=== PATIENT | female | born 1970 | race Caucasian/White ===

== ENCOUNTER 2018-08-18 00:08 | Outpatient (CLI) | payer OTHER, SELFPAY ==
--- NOTE | 2018-08-18 13:48 | DI.CT_ITS ---
SYMPTOMS/DIAGNOSIS: ABNORMAL CHEST CT, R93.[address]: Comparison is made with December,, as well as April,. There has been no change in the right middle lobe nodule. No new nodules are identified. There is no evidence of infiltrates or effusions. No adenopathy is seen. A large bulla is again noted at the right lung base. The heart size is normal. The visualized portions of the upper abdomen are unremarkable without IV contrast. IMPRESSION: Right middle lobe nodule has been stable when compared with the oldest exam available from 2015. It lies right in the fissure.
== END 2018-08-18 00:28 ==
PROVIDERS: PCP Nurse Practitioner; Visit Provider Internal Medicine
DX: R91.1 Solitary pulmonary nodule (principal)
CPT/HCPCS: 71250

== ENCOUNTER 2018-10-06 15:15 | Emergency (ER) | payer OTHER, SELFPAY ==
[2018-10-06 15:28] VITALS: BP 167/100; PULSE 93; RESP 20; TEMP 36.9; O2SAT 100
[2018-10-06] MEDS: Acetaminophen 500 MG TAB 1000 MG PO (16:05)
[2018-10-06] MEDS: Ibuprofen 600 MG TAB PO (16:05)
[2018-10-06] MEDS: predniSONE 20 MG TAB 60 MG PO (16:05)
--- NOTE | 2018-10-06 16:07 | ED.GENADUL_ITS ---
Discharge Plan Disposition Patient Disposition: HOME Condition: Stable Discharge Details Chief Complaint: Allergic Clinical Impression: Otitis media, Tension headache, Migraine Reason For Visit: throat closing Primary Care Provider: Velia Su ED Provider: Ana Paula Penn Home Meds and New Rx's Prescriptions: New prednisone 20 mg tablet 20 mg PO DIRECTED Qty: 12 RF: 0 azithromycin [Zithromax Z-Robbie] 250 mg tablet See Label Instructions .ROUTE .COMPLEX Qty: 6 RF: 0 Continue calcium carbonate [Calcium 600] 600 MG tablet 600 mg PO DAILY RF: 0 montelukast 10 MG tablet 10 mg PO DAILY RF: 0 loratadine 10 MG tablet 10 mg PO DAILY RF: 0 fluticasone [Flovent HFA] 1 PUFF HFA aerosol inhaler Inhalation BID RF: 0 levalbuterol tartrate [Xopenex HFA] 1 PUFF HFA aerosol inhaler 2 puff Inhalation PRN PRNRF: 0 dexlansoprazole [Dexilant] 30 MG capsule,biphase delayed releas 30 mg PO DAILY RF: 0 bupropion HCl [Wellbutrin SR] 150 mg Tablet Sustained-Release 12 Hr 150 mg PO BID RF: 0 sertraline 25 mg Tablet 25 mg PO DAILY RF: 0 Discharge Instructions Instructions: Otitis Media (ED) Additional Instructions: Drink plenty of fluids and get plenty of rest. Stop taking the clindamycin. Start taking the zithromax as directed. Take the steroids until finished. Take Tylenol and Motrin as needed and directed for pain. Follow-up with your primary care doctor in 1 week for reevaluation. Return immediately to the emergency department any worsening or new concerning symptoms. Stand Alone Forms: Work Release Discharge Data Discharge Physician: Ana Paula Penn Medical Decision Making 48yo F who presents with b/l ear pain x 1 week with radiation to L side of neck x 2 days. Pt on clindamycin for ruptured R TM per pcp. 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 Pt appears somewhat anxious. BP hypertensive, HR upper limit of normal. Afebrile. No meningeal signs. No focal deficits. R TM obscured by cerumen but appears somewhat erythematous. L TM dull. Normal oropharynx. No lymphadenopathy/ submandibular swelling. Lungs cta. Pain in L neck worse with movement of head so suspect muscular. Likely pain referred from ears. Denies sensation of throat swelling but throat felt dry. Will give a dose of prednisone, motrin and tylenol PO and reassess. 163 -- Pt not feeling any better in her head. C/o frontal headache and tingling. States she would like a CT scan of her head. Pt admits to a h/o migraines so may be from and/or muscle strain/viral illness. Will place an IV, bolus ivf, compazine and ct head. Pt is refusing benadryl IV - states she has an opposite reaction to it. 183 -- labs and imaging reviewed and unremarkable. Patient has a history of chronic leukocytosis which she told me about before lab draw. White blood cell count and remainder of chronic elevation of the labs stable compared to previous. Patient states she feels much better and is requesting to go home. Pt instructed to stop the clindamycin and will give a prescription for zithromax. Script for predisone given. Patient instructed to follow-up with a primary care doctor for evaluation, drink plenty of fluids and plenty of rest, and return here immediately if worse. Medical Records Medical records reviewed: Yes I reviewed the patient's medical records. Imaging Data Radiologic Study: Radiologist's impression: CT Head Without Contrast EXAM DATE/TIME: 10/06/2018 4:40 PM FINDINGS: Brain: No acute intracranial hemorrhage or extra-axial fluid collection. No evidence of mass effect or midline shift. Jean Baptiste-white matter differentiation is intact. Ventricles: No ventriculomegaly. Bones/joints: No acute osseus lesion or fracture. Sinuses: Unremarkable as visualized. Mastoid air cells: Unremarkable. Soft tissues: Unremarkable. IMPRESSION: No acute intracranial abnormality. Lab Data Lab results reviewed: Yes I reviewed the patient's lab results. Laboratory Tests Range/Units 10/06/18 10/06/18 17:00 17:00 WBC (4.4-10.8) k/cumm 14.22 H RBC (4.00-5.20) m/cumm 6.38 H Hgb (12.0-15.5) g/dL 12.7 Hct (36.0-46.0) % 38.4 MCV (80-95) fL 60.2 L MCH (27.0-33.0) pg 19.9 L MCHC (32.0-36.0) g/dL 33.1 RDW (11.7-14.6) % 17.8 H Plt Count (130-400) x1000/uL 327 MPV (8.0-11.0) fL 10.7 Immature Gran % 0.4 Neutrophils % 73.7 Lymphocytes % 18.4 Monocytes % 6.5 Eosinophils % 0.6 Basophils % 0.4 Absolute Neutrophils (1.2-6.7) k/cumm 10.48 H Absolute Lymphocytes (1.2-3.4) k/cumm 2.62 Absolute Monocytes (0.11-0.7) k/cumm 0.92 H Absolute Eosinophils (0.0-0.7) k/cumm 0.09 Absolute Basophils (0.0-0.2) k/cumm 0.06 Differential Comment Rbc morph reviewed RBC Morphology See below Hypochromasia 2+ Microcytosis 3+ Sodium (136-145) mmol/L 140 Potassium (3.5-5.1) mmol/L 3.6 Chloride (98-107) mmol/L 100 Carbon Dioxide (21.0-32.0) mmol/L 28.4 Anion Gap (3-11) mmol/L 11.6 H BUN (7-18) mg/dL 10 Creatinine (0.55-1.02) mg/dL 0.79 Estimated GFR/1.73 m2 (mL/min/1.73m2) >= 60.00 Glucose (70-100) mg/dL 101 H Calcium (8.5-10.1) mg/dL 9.0 HPI General Mode of arrival: ambulatory . Date/Time Provider Initiated Documentation: 10/06/18 15:21 . Limitations to Documentation: no limitations . Information obtained by: patient . HPI Narrative: Pt is a 48yo F who presents with ear pain and sore throat and sensation of throat swelling. Pt states symptoms started with R ear pain 1 week ago. She saw her pcp and was diagnosed with R TM rupture and started on clindamycin. Pt states then her L ear pain started and today she felt worsening L ear pain with now radiation in the L side of her neck over the past 2 days. Pt states then pain radiates down into her L clavicle. 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 Denies any sensation of throat swelling. Pt denies cough, shortness of breath or abdominal pain. Related Data Home Medications Medication Instructions Recorded Confirmed calcium carbonate [Calcium 600] 600 mg PO DAILY 06/20/13 04/06/18 dexlansoprazole [Dexilant] 30 mg PO DAILY 06/20/13 10/06/18 fluticasone [Flovent HFA] 0 gm INHALATION BID 06/20/13 10/06/18 levalbuterol tartrate [Xopenex HFA] 2 puff INHALATION PRN PRN 06/20/13 04/06/18 loratadine 10 mg PO DAILY 06/20/13 10/06/18 montelukast 10 mg PO DAILY 06/20/13 10/06/18 azithromycin [Zithromax Z-Robbie] See Label Instructions .ROUTE 10/06/18 .COMPLEX #6 tab bupropion HCl [Wellbutrin SR] 150 mg PO BID 10/06/18 10/06/18 prednisone 20 mg PO DIRECTED #12 tab 10/06/18 sertraline 25 mg PO DAILY 10/06/18 10/06/18 Previous Rx's Medication Instructions Recorded azithromycin [Zithromax Z-Robbie] See Label Instructions .ROUTE 10/06/18 .COMPLEX #6 tab prednisone 20 mg PO DIRECTED #12 tab 10/06/18 Allergies Allergy/AdvReac Type Severity Reaction Status Date / Time codeine Allergy Intermediate shakes-passes Unverified 10/06/18 15:32 out doxycycline Allergy Intermediate Swelling/Ed Verified 10/06/18 15:32 wali Penicillins Allergy Intermediate ? rash as Unverified 10/06/18 15:32 child amitriptyline HCl Allergy Mild Skin Rash Unverified 10/06/18 15:32 [From Elavil] hydrocodone [Hydrocodone] Allergy Mild vomiting Unverified 10/06/18 15:32 diarrhea General Stated Complaint: Allergic SATYA: 2 Review of Systems Review of Systems All systems reviewed & are unremarkable except as noted in HPI and below Constitutional Reports as per HPI, Denies chills and Denies fever(s) Eyes Denies blurry vision ENT Denies dizziness, Reports dry mouth, Reports otalgia, Reports neck pain, Reports sore throat and Denies throat swelling Cardiovascular Denies chest pain and Denies dyspnea Respiratory Denies dyspnea Gastrointestinal Denies abdominal pain, Denies diarrhea and Denies vomiting Genitourinary Denies hematuria and Denies dysuria Musculoskeletal Denies back pain, Reports neck pain and Denies numbness Integumentary/Breasts Denies lesions and Denies rash Neurologic Denies dizziness and Denies numbness Allergic/Immunologic Denies throat swelling PFSH Celiac disease (Acute) Thalassemia (Acute) History of hysterectomy (Chronic) H/O thumb surgery (Acute) H/O section (Chronic) H/O laparoscopy (Chronic) History of appendectomy (Chronic) Medical History Celiac disease (Acute) Thalassemia (Acute) History of hysterectomy (Chronic) Social History Smoking/Tobacco Use Status: Former Tobacco Use Surgical History H/O thumb surgery (Acute) H/O section (Chronic) H/O laparoscopy (Chronic) History of appendectomy (Chronic) Social History Smoking/Tobacco Use Status: Former Tobacco Use quit date: 07/23/18 alcohol intake: never substance use type: does not use Exam Const General: cooperative, healthy appearing and no acute distress HENMT Head: normal to inspection Ears: other (R TM notes cerumen and view of full TM obscured but does notes some erythema/dullness but no drainage; L TM dull, possible effusion, no erythema/drainage) General nose exam: external nose normal Face and sinus: normal facial exam Mouth: oral mucosae normal Teeth and gingiva: dentition normal Throat: posterior oropharynx normal, uvula midline, no peritonsillar masses and no postnasal drainage Eyes General: appearance normal, both eyes and all related structures Neck Neck: normal visual inspection, no meningeal signs, trachea midline, supple, no anterior neck swelling, nontender and No submandibular swelling Lymphatic: no lymphadenopathy noted Resp Effort & Inspection: normal respiratory effort and able to speak in complete sentences Auscultation: clear to auscultation bilaterally Cardio Rate: regular rate Rhythm: regular rhythm Skin General skin exam: no rashes or lesions noted Neuro General: alert, awake and oriented x3 Motor: muscle tone normal throughout Extrem General: normal to inspection and full ROM Psych Appearance: grossly normal Affect: normal affect Course Vital Signs Temperature 98.4 F 10/06/18 15:28 Pulse 93 H 10/06/18 15:28 Respiratory Rate 20 10/06/18 15:28 Blood Pressure 167/100 H 10/06/18 15:28 Pulse Oximetry 100 10/06/18 15:28 Temperature 98.4 F 10/06/18 15:28 Temperature Source Tympanic 10/06/18 15:28 Pulse 93 H 10/06/18 15:28 Respiratory Rate 20 10/06/18 15:28 Respiratory Effort 10/06/18 15:37 Respiratory Pattern Normal 10/06/18 15:37 Blood Pressure 167/100 H 10/06/18 15:28 Pulse Oximetry 100 10/06/18 15:28 Oxygen Delivery Method Room Air 10/06/18 15:28 Oxygen Flow Rate 0 10/06/18 15:28
--- NOTE | 2018-10-06 16:39 | DI.CT_ITS ---
SYMPTOM/DIAGNOSIS: FRONTAL HEADACHE, R/O ACUTE CVA/MASS NONCONTRAST HEAD CT: Comparison is made with 29 March 2014. No intracranial hemorrhage, mass or infarct is seen. There is no evidence of atrophy No white matter changes are visible The visualized portions of the sinuses and mastoid air cells appear clear. No bony abnormalities are identified. IMPRESSION: Negative head CT.
[2018-10-06] MEDS: Prochlorperazine 10 MG/2 ML VIAL IVP (17:20)
[2018-10-06] MEDS: Normal Saline 1,000 ML 1000 ML IV (17:24)
[2018-10-06 17:41] LABS: Anion Gap 11.6 mmol/L (3-11); BUN 10 mg/dL (7-18); CO2 28.4 mmol/L (21.0-32.0); CREATININE 0.79 mg/dL (0.55-1.02); Chloride 100 mmol/L (98-107); Glucose 101 mg/dL (70-100); Potassium 3.6 mmol/L (3.5-5.1); Sodium 140 mmol/L (136-145)
--- NOTE | 2018-10-06 17:52 | DI.VRAD_ITS ---
EXAM: CT Head Without Contrast EXAM DATE/TIME: 10/06/2018 4:40 PM CLINICAL HISTORY: 48 years old, female; Pain; Headache; Other: Frontal; Patient HX: Frontal headache; Additional info: R/O acute cva/mass TECHNIQUE: Axial computed tomography images of the head/brain without contrast. Coronal and sagittal reformatted images were created and reviewed. COMPARISON: CT HEAD WITHOUT CONTRAST 04/08/2014 9:43 AM FINDINGS: Brain: No acute intracranial hemorrhage or extra-axial fluid collection. No evidence of mass effect or midline shift. Jean Baptiste-white matter differentiation is intact. Ventricles: No ventriculomegaly. Bones/joints: No acute osseus lesion or fracture. Sinuses: Unremarkable as visualized. Mastoid air cells: Unremarkable. Soft tissues: Unremarkable. IMPRESSION: No acute intracranial abnormality. Dictated and Authenticated by: Tom Wise MD. Ordering:DIVYA TAY MD
[2018-10-06 17:54] LABS: Abs Immature Grans 0.05 k/cumm (0.0-0.09); Absolute Basophil Count 0.06 k/cumm (0.0-0.2); Absolute Eosinophil Count 0.09 k/cumm (0.0-0.7); Absolute Neutrophil Count 10.48 k/cumm (1.2-6.7); Basophils % 0.4; Eosinophils % 0.6; HCT 38.4 % (36.0-46.0); HGB 12.7 g/dL (12.0-15.5); Immature Grans % 0.4; Lymphocytes % 18.4; Mean Corp. HGB Concentration 33.1 g/dL (32.0-36.0); Mean Corpuscular Hemoglobin 19.9 pg (27.0-33.0); Mean Corpuscular Volume 60.2 fL (80-95); Mean Platelet Volume 10.7 fL (8.0-11.0); Monocytes % 6.5; Neutrophils % 73.7; Platelet Count 327 x1000/uL (130-400); RBC 6.38 m/cumm (4.00-5.20); RBC Distribution Width 17.8 % (11.7-14.6); White Blood Cell Count 14.22 k/cumm (4.4-10.8)
[2018-10-06 18:02] LABS: Absolute Lymphocyte Count 2.62 k/cumm (1.2-3.4); Absolute Monocyte Count 0.92 k/cumm (0.11-0.7)
[2018-10-06 18:17] LABS: Diff Comment RBC Morph Reviewed; Hypochromasia 2+; Microcytosis 3+
[2018-10-06 19:03] VITALS: BP 103/56; PULSE 70; RESP 16; TEMP 36.4; O2SAT 97
[2018-10-06] MEDS: Prochlorperazine 10 MG TAB PO (19:06)
== END 2018-10-06 19:40 | disposition home or self-care (01) ==
PROVIDERS: Emergency Provider Physician Assistant; PCP Nurse Practitioner
DX: H66.92 Otitis media, unspecified, left ear (principal); M54.2 Cervicalgia; G44.209 Tension-type headache, unspecified, not intractable; G43.909 Migraine, unspecified, not intractable, without status migrainosus
CPT/HCPCS: 36415; 80048; 96361; 96374; 99284; 70450; 85025; 99285; J0780; J7512

== ENCOUNTER 2018-12-05 12:15 | Outpatient (CLI) | payer OTHER, SELFPAY ==
--- NOTE | 2018-12-05 12:13 | DI.RAD_ITS ---
SYMPTOMS/DIAGNOSIS: INFLUENZA, J11.1 PA AND LATERAL CHEST: The heart is normal in size. The lungs are clear. The mediastinal structures and pleura appear intact. CONCLUSION: Normal chest.
== END 2018-12-05 12:35 ==
PROVIDERS: PCP Nurse Practitioner; Visit Provider Family Medicine
DX: J11.1 Influenza due to unidentified influenza virus with other respiratory manifestations (principal)
CPT/HCPCS: 71046

== ENCOUNTER 2019-01-15 02:42 | Outpatient (CLI) | payer OTHER, SELFPAY ==
--- NOTE | 2019-01-15 | PFT_ITS ---
PULMONARY FUNCTION TEST REPORT Patient - Opal Woods 70 DATE OF SERVICE 01/15/19 REQUESTING PROVIDER Eddie Chowdhury M.D. INTERPRETATION OF STUDY Spirometry shows borderline mild obstructive airways disease, may represent normal variant. There is no bronchodilator response. LUNG VOLUMES - Lung volumes show no evidence of restriction. DIFFUSION CAPACITY- Borderline mildly reduced, again, may represent normal variant. AIRWAY RESISTANCE - Normal. IMPRESSION Overall this might represent a normal pulmonary function study. There is possibly borderline mild obstruction, thought this may be representing normal variant. When this study was compared to previous one from 02/24/08, the patient has a total of 310 cc decline in FVC, and 220 cc decline in FEV1. Clinical correlation recommended. Pamela Harrington M.D. THERESE/ DD 01/21/19 DT 01/21/19
[2019-01-15] MEDS: Inhaler, Assist Device 1 EACH MC (14:22)
[2019-01-15] MEDS: Albuterol HFA 18 GM 200 PUFF INH IH (14:23)
== END 2019-01-15 03:02 ==
PROVIDERS: PCP Nurse Practitioner; Visit Provider Family Medicine
DX: J44.9 Chronic obstructive pulmonary disease, unspecified (principal); F17.210 Nicotine dependence, cigarettes, uncomplicated
CPT/HCPCS: 94060; 94150; 94726; 94729

== ENCOUNTER 2019-12-24 15:46 | Emergency (ER) | payer OTHER, SELFPAY ==
[2019-12-24 15:51] VITALS: BP 136/88; PULSE 75; RESP 16; TEMP 36.3; O2SAT 100
--- NOTE | 2019-12-24 16:00 | DI.RAD_ITS ---
EXAM: XR WRIST RT COMPLETE INDICATION: pain R volar wrist, r/o acute fx. COMPARISON: No exams were available for comparison TECHNIQUE: 2D digital imaging was performed. FINDINGS: No fracture or dislocation is seen. No significant degenerative changes. IMPRESSION: Negative right wrist. DATA REPOSITORY: RADIATION DOSE DELIVERED:
--- NOTE | 2019-12-24 16:02 | ED.GENADUL_ITS ---
Discharge Plan Disposition Patient Disposition: HOME Condition: Stable Discharge Details Chief Complaint: Orthopedic Clinical Impression: Contusion of right wrist Primary Care Provider: Velia Su ED Provider: Ana Paula Penn Home Meds and New Rx's Prescriptions: Continued calcium carbonate [Calcium 600] 600 MG tablet 600 mg PO DAILY RF: 0 montelukast 10 MG tablet 10 mg PO DAILY RF: 0 loratadine 10 MG tablet 10 mg PO DAILY RF: 0 Flovent HFA 1 PUFF HFA aerosol inhaler 0 gm Inhalation BID RF: 0 levalbuterol tartrate [Xopenex HFA] 1 PUFF HFA aerosol inhaler 2 puff Inhalation PRN PRNRF: 0 Dexilant 30 MG capsule,biphase delayed releas 30 mg PO DAILY RF: 0 bupropion HCl [Wellbutrin SR] 150 mg Tablet Sustained-Release 12 Hr 150 mg PO BID RF: 0 sertraline 25 mg Tablet 25 mg PO DAILY RF: 0 prednisone 20 mg tablet 20 mg PO DIRECTED Qty: 12 RF: 0 Discharge Instructions Instructions: Contusion in Adults (ED) Additional Instructions: Rest, ice, and elevate the affected area as much as possible. Alternate tylenol and motrin as needed and directed for pain. Follow-up with your primary care doctor in 1 week as needed for re-evaluation or for repeat xray if pain persists or worsens. Return to the emergency department with any worsening or new concerning symptoms. Discharge Data Discharge Date/Time-TO BE ENTERED AT DEPARTURE: 12/24/19 17:08 Discharge Physician: Ana Paula Penn Medical Decision Making 49-year-old female presents with right wrist pain after fall onto outstretched right hand 3 times a day while ice skating. She has not taken anything for pain. There is a localized area of tenderness and ecchymosis noted to the right volar wrist. No obvious deformity. No snuffbox tenderness. Neurovascular intact. Declined pain medication here. X-ray negative for fracture. Patient placed in wrist splint. Advised to have repeat x-ray from PCP if symptoms persist or worsen. Usual and customary return precautions given prior to discharge. Imaging Data Radiologic Study: Radiologist's impression: XR CHEST 2V PA AND LATERAL INDICATION: COUGH, FEVER, R/O PNEUMONIA. COMPARISON: No exams were available for comparison TECHNIQUE: 2D digital imaging was performed. FINDINGS: The cardiac and mediastinal contours have a normal appearance. Lungs are suboptimally inflated. There are streaky densities seen at the right lower lobe. No effusions are seen. There is some gaseous distention of the colon. IMPRESSION: Right lower lobe pneumonia. HPI General Mode of arrival: ambulatory . Date/Time Provider Initiated Documentation: 12/24/19 15:57 . Limitations to Documentation: no limitations . Information obtained by: patient . History of Present Illness 49 year old F presents to the emergency department with the chief complaint of R wrist pain and swelling, Quality is described as aching and sharp, and is localized to the right and upper extremity (wrist). Patient started experiencing this hour(s) (1) and it has been constant. Rest improves symptom(s), Movement worsens symptoms . Patient notes no other symptoms.. Patient did receive the following treatments prior to arrival, none Related Data Home Medications Medication Instructions Recorded Confirmed Dexilant 30 mg PO DAILY 06/20/13 12/24/19 Flovent HFA 0 gm INHALATION BID 06/20/13 12/24/19 calcium carbonate [Calcium 600] 600 mg PO DAILY 06/20/13 12/24/19 levalbuterol tartrate [Xopenex HFA] 2 puff INHALATION PRN PRN 06/20/13 12/24/19 loratadine 10 mg PO DAILY 06/20/13 12/24/19 montelukast 10 mg PO DAILY 06/20/13 12/24/19 bupropion HCl [Wellbutrin SR] 150 mg PO BID 10/06/18 10/06/18 prednisone 20 mg PO DIRECTED #12 tab 10/06/18 12/24/19 sertraline 25 mg PO DAILY 10/06/18 12/24/19 Previous Rx's Medication Instructions Recorded prednisone 20 mg PO DIRECTED #12 tab 10/06/18 Allergies Allergy/AdvReac Type Severity Reaction Status Date / Time codeine Allergy Intermediate shakes-passes Unverified 12/24/19 15:53 out doxycycline Allergy Intermediate Swelling/Ed Verified 12/24/19 15:53 wali Penicillins Allergy Intermediate ? rash as Unverified 12/24/19 15:53 child amitriptyline HCl Allergy Mild Skin Rash Unverified 12/24/19 15:53 [From Elavil] hydrocodone [Hydrocodone] Allergy Mild vomiting Unverified 12/24/19 15:53 diarrhea General Stated Complaint: Orthopedic SATYA: 4 Review of Systems All systems reviewed & are unremarkable except as noted in HPI and below PFSH Social History Smoking/Tobacco Use Status: Former Tobacco Use Quit Date: 07/23/18 Alcohol Intake: never Drug use: Never Substance use type: does not use Do you feel safe in your relationship?: Yes Exam Const General: cooperative, healthy appearing and no acute distress HENMT Head: normal to inspection Mouth: oral mucosae normal Eyes General: appearance normal, both eyes and all related structures Neck Neck: normal visual inspection Resp Effort & Inspection: normal respiratory effort and able to speak in complete se ntences Cardio Rate: regular rate Skin General skin exam: no rashes or lesions noted Neuro General: alert, awake and oriented x3 Motor: muscle tone normal throughout Extrem Hand/finger images: 1. Localized area of tenderness and ecchymoses. No obvious deformity. No open wounds. No erythema or significant edema. Radial and ulnar pulses intact. Other: Pain in right wrist with flexion, extension, pronation and supination. Psych Appearance: grossly normal Affect: normal affect Course Vital Signs Vital signs: Vital Signs Temperature 97.3 F L 12/24/19 15:51 Pulse 75 12/24/19 15:51 Respiratory Rate 16 12/24/19 15:51 Blood Pressure 136/88 12/24/19 15:51 Pulse Oximetry 100 12/24/19 15:51 Temperature 97.3 F L 12/24/19 15:51 Temperature Source Skin 12/24/19 15:51 Pulse 75 12/24/19 15:51 Respiratory Rate 16 12/24/19 15:51 Respiratory Effort Non-Labored 12/24/19 15:51 Blood Pressure 136/88 12/24/19 15:51 Blood Pressure Position Supine 12/24/19 15:51 Pulse Oximetry 100 12/24/19 15:51 Oxygen Delivery Method Room Air 12/24/19 15:51 Oxygen Flow Rate 0 12/24/19 15:51 Pain Level 8 12/24/19 15:55
--- NOTE | 2019-12-24 16:43 | DI.VRAD_ITS ---
PROCEDURE INFORMATION: Exam: XR Right Wrist Exam date and time: 12/24/2019 4:16 PM Age: 49 years old Clinical indication: Injury or trauma; Fall; Initial encounter; Sprain or strain; Wrist; Right TECHNIQUE: Imaging protocol: XR Right wrist. Views: 3 or more views. COMPARISON: No relevant prior studies available. FINDINGS: Bones/joints: Normal. Soft tissues: Normal. IMPRESSION: No acute findings. Dictated and Authenticated by: Hubert Millard MD. Ordering:DIVYA Gsos MD
== END 2019-12-24 17:08 | disposition home or self-care (01) ==
PROVIDERS: Emergency Provider Physician Assistant; PCP Nurse Practitioner
DX: S60.211A Contusion of right wrist, initial encounter (principal); W00.0XXA Fall on same level due to ice and snow, initial encounter; Y93.21 Activity, ice skating
CPT/HCPCS: 29125; 99283; 73110; L3908

== ENCOUNTER 2020-01-25 08:30 | Outpatient (CLI) | payer OTHER, SELFPAY ==
[2020-01-26 18:57] LABS: SARS-CoV-2 RNA Undetected (Undetected); SARS-CoV-2 Specimen Source Nasopharynx
== END 2020-01-25 08:50 ==
PROVIDERS: PCP Nurse Practitioner; Visit Provider Family Medicine
DX: Z20.828 Contact with and (suspected) exposure to other viral communicable diseases (principal)
CPT/HCPCS: U0003

== ENCOUNTER 2020-08-02 16:54 | Outpatient (REF) | payer OTHER, SELFPAY ==
[2020-08-07 08:26] LABS: Patient Race White; SARS-CoV-2 RNA Undetected (Undetected); SARS-CoV-2 Specimen Source Nasopharynx
== END 2020-08-02 17:14 ==
LOC: NCHCN 16:54
PROVIDERS: PCP Nurse Practitioner; Visit Provider Nurse Practitioner Family
DX: R05 Cough (principal)
CPT/HCPCS: U0003

== ENCOUNTER 2020-09-16 18:21 | Outpatient (REF) | payer OTHER, SELFPAY ==
[2020-09-20 03:11] LABS: Patient Race White; SARS-CoV-2 RNA Undetected (Undetected); SARS-CoV-2 Specimen Source Nasal
== END 2020-09-16 18:41 ==
LOC: NCHCN 18:21
PROVIDERS: PCP Nurse Practitioner; Visit Provider Nurse Practitioner Family
DX: R50.9 Fever, unspecified (principal); J02.9 Acute pharyngitis, unspecified
CPT/HCPCS: U0003

== ENCOUNTER 2020-09-29 17:16 | Outpatient (REF) | payer OTHER, SELFPAY ==
[2020-09-29 18:23] LABS: Abs Immature Grans 0.04 10^3/uL (0.0-0.06); Absolute Basophil Count 0.09 10^3/uL (0.0-0.2); Absolute Eosinophil Count 0.22 10^3/uL (0.0-0.7); Absolute Monocyte Count 1.15 10^3/uL (0.1-0.8); Basophils % 0.7; Eosinophils % 1.6; HCT 37.8 % (36.0-46.0); HGB 11.9 g/dL (11.2-15.7); Immature Grans % 0.3; Lymphocytes % 35.1; MCH 19.4 pg (27.0-33.0); MCHC 31.5 % (32.0-36.0); MPV 10.5 fL (8.0-11.0); Monocytes % 8.5; Neutrophils % 53.8; Nucleated RBC 0 %; Platelet Count 367 10^3/uL (130-400); RDW 17.2 % (11.7-14.6); RDW-SD 33.1 fL; WBC 13.49 10^3/uL (4.4-10.8)
[2020-09-29 18:27] LABS: Anion Gap 7.8 mmol/L (3-11); BUN 11 mg/dL (7-18); CO2 28.2 mmol/L (21.0-32.0); CREATININE 0.96 mg/dL (0.55-1.02); Calcium 9.1 mg/dL (8.5-10.1); Chloride 104 mmol/L (98-107); Glucose 88 mg/dL (74-106); Potassium 4.2 mmol/L (3.5-5.1); Sodium 140 mmol/L (136-145)
[2020-09-29 18:28] LABS: Absolute Lymphocyte Count 4.73 10^3/uL (1.2-3.4); Absolute Neutrophil Count 7.26 10^3/uL (1.2-6.7)
[2020-09-29 18:45] LABS: RBC 6.14 10^6/uL (3.93-5.22)
[2020-09-29 18:46] LABS: Diff Comment RBC Morph Reviewed; MCV 61.6 fL (80-95)
[2020-09-29 18:47] LABS: Hypochromasia 1+; Microcytosis 3+; Polychromasia Present
[2020-09-29 18:48] LABS: Poikilocytes 1+
[2020-09-29 19:40] LABS: ESR 6 mm/hr (0-20)
== END 2020-09-29 17:36 ==
LOC: NCHCN 17:16
PROVIDERS: PCP Nurse Practitioner; Visit Provider Nurse Practitioner Family
DX: J39.2 Other diseases of pharynx (principal); B34.1 Enterovirus infection, unspecified
CPT/HCPCS: 80048; 85652; 85025

== ENCOUNTER 2020-10-13 22:24 | Outpatient (REF) | payer OTHER, SELFPAY ==
[2020-10-13 18:54] LABS: Abs Immature Grans 0.02 10^3/uL (0.0-0.06); Absolute Basophil Count 0.07 10^3/uL (0.0-0.2); Absolute Eosinophil Count 0.24 10^3/uL (0.0-0.7); Absolute Lymphocyte Count 3.52 10^3/uL (1.2-3.4); Absolute Monocyte Count 0.87 10^3/uL (0.1-0.8); Absolute Neutrophil Count 4.25 10^3/uL (1.2-6.7); Basophils % 0.8; Eosinophils % 2.7; HCT 36.5 % (36.0-46.0); HGB 11.1 g/dL (11.2-15.7); Immature Grans % 0.2; Lymphocytes % 39.2; MCH 19.3 pg (27.0-33.0); MCHC 30.4 % (32.0-36.0); MCV 63.4 fL (80-95); MPV 10.4 fL (8.0-11.0); Monocytes % 9.7; Neutrophils % 47.4; Nucleated RBC 0 %; Platelet Count 320 10^3/uL (130-400); RBC 5.76 10^6/uL (3.93-5.22); RDW 16.8 % (11.7-14.6); RDW-SD 35.3 fL; WBC 8.97 10^3/uL (4.4-10.8)
[2020-10-13 19:07] LABS: C-Reactive Protein 0.35 mg/dL (0.0-0.3)
[2020-10-13 19:12] LABS: Mono Screening Negative (Negative)
[2020-10-13 19:42] LABS: ESR 6 mm/hr (0-20)
[2020-10-13 19:47] LABS: ALT 30 U/L (14-59); AST 20 U/L (15-37); Alkaline Phosphatase 78 U/L (46-116); Anion Gap 6.8 mmol/L (3-11); BUN 10 mg/dL (7-18); Bilirubin, Total 0.6 mg/dL (0.2-1.0); CO2 28.2 mmol/L (21.0-32.0); CREATININE 0.86 mg/dL (0.55-1.02); Chloride 105 mmol/L (98-107); Glucose 96 mg/dL (74-106); Potassium 4.4 mmol/L (3.5-5.1); Sodium 140 mmol/L (136-145); Total Protein 7.2 g/dL (6.4-8.2)
[2020-10-13 20:25] LABS: Anisocytosis 2+; Diff Comment RBC Morph Reviewed; Hypochromasia 1+; Microcytosis 3+; Polychromasia Present; Target Cells 2+
[2020-10-17 11:44] LABS: Lyme Ab w Rflx to Lyme Confirm Negative (Negative)
[2020-10-17 17:07] LABS: COVID-19 RT-PCR Result NEGATIVE (Negative)
[2020-10-17 19:03] LABS: Anaplasma phagocytophilum Negative (Negative); B. miyamotoi PCR Negative (Negative); Babesia divergens/MO-1 Negative (Negative); Babesia duncani Negative (Negative); Babesia microti Negative (Negative); Ehrlichia chaffeensis Negative (Negative); Ehrlichia ewingii/canis Negative (Negative); Ehrlichia muris eauclairensis Negative (Negative)
== END 2020-10-13 22:44 ==
LOC: NCHCN 22:24
PROVIDERS: PCP Nurse Practitioner; Visit Provider Nurse Practitioner Family
DX: J35.9 Chronic disease of tonsils and adenoids, unspecified (principal); J39.2 Other diseases of pharynx; B34.1 Enterovirus infection, unspecified
CPT/HCPCS: 80053; 85652; 87798; U0003; 85025; 86140; 86308; 86618

== ENCOUNTER 2020-11-17 17:24 | Outpatient (REF) | payer OTHER, SELFPAY ==
[2020-11-19 18:55] LABS: HSV 1 PCR, Varies Negative (Negative); HSV 2 PCR, Varies Negative (Negative)
== END 2020-11-17 17:44 ==
LOC: NCHCN 17:24
PROVIDERS: PCP Nurse Practitioner; Visit Provider Family Medicine
DX: J39.2 Other diseases of pharynx (principal)
CPT/HCPCS: 87529

== ENCOUNTER 2020-11-29 03:17 | Outpatient (CLI) | payer OTHER, SELFPAY | END 2020-11-29 03:18 | disposition home or self-care (01) | LOC: LBO 03:17 | PROVIDERS: PCP Nurse Practitioner; Visit Provider Otolaryngology | DX: J31.2 Chronic pharyngitis (principal) | CPT/HCPCS: 36415; 84443 ==

== ENCOUNTER 2021-02-05 09:12 | Emergency (ER) | payer OTHER, SELFPAY ==
--- OUTSIDE RECORDS SUMMARY | 2021-02-05 09:26 | XMS_ITS ---
:1970 Author Care Team Providers Name Role Phone YOUEmma HOOD Primary Care Provider [phone] TERRY NELSON MD Retort Kiln Burner Unavailable [facility] MED[facility] RECORDS Primary Care Provider [phone] Allergies Code Code System Name Reaction Severity Status Onset 2670 RxNorm Codeine ? ? Active ? 3640 RxNorm Doxycycline ? ? Active ? Elavil Facial ? Active ? Swelling Penicillins Rash ? Active ? 228145 RxNorm Vicodin Vomiting ? Active ? Medications Name Status Start Date Stop Date ? ? albuterol sulfate 2.5 mg/3 mL (0.083 %) solution for nebulizatio n Active ? Not available Inhale 3 mL every 4-6 hours by nebulization route as needed. Renuka Allergy 180 mg tablet Active ? No t available Take 1 tablet every day by oral route. azithromycin 250 mg tablet Completed ? 04/03 bupropion HCl SR 150 mg tablet,12 hr Active ? Not available sustained-release cefuroxime axetil 500 mg tablet Completed ? 04/03/2019 clindamycin HCl 300 mg capsule Completed ? 0 04/03/2019 Dexilant 30 mg capsule, delayed release Active ? Not available Take 1 capsule every day by oral route. doxycycline hyclate 100 mg tablet Completed ? 04/03/2019 Flovent HFA 110 mcg/actuation aerosol Completed ? 04/03/2019 inhaler Flovent HFA 220 mcg/actuation aerosol inhaler Active ? Not available Inhale 2 puffs twice a day by inhalation route. fluticasone propionate 50 mcg/actuation Active ? Not available nasal spray,suspension montelukast 10 mg tablet Active ? Not kike ilable Nasonex 50 mcg/actuation [place] Completed ? 0 04/03/2019 [place] 2 sprays every day by intranasal route as needed. Aisha Del Valle [facility] spacer Active ? N ot available prednisone 20 mg tablet Completed ? 04/03/20 19 prednisone 50 mg tablet Completed ? 04/03/20 19 Proventil HFA 90 mcg/actuation aerosol Active ? Not available inhaler sertraline 50 mg tablet Active ? Not avai lable Problems Name Status Onset Date Source ? Hypersomnia Active ? History Moderate Persistent Asthma Active ? Histo ry Sleep Apnea Active ? History Snoring Active ? History Radiology Result Abnormal Unknown ? Histor y Procedure by Method Unknown ? History Procedures Date Name Performed by ? 10/28/2003 Laparoscopy Information not avai lable 10/28/1992 Hysterectomy Information not avai lable ? Breast Biopsy Information not avai lable Results Lab Results None recorded. Past Encounters None recorded. Social History Tobacco Smoking Status Former Smoker Notes: 8: Quit 3 weeks ago Vaccine List None recorded. Plan of Care Reminders Provider Appointments None ? ? recorded. Lab None ? ? recorded. Referral None ? ? recorded. Procedures None ? ? recorded. Surgeries None ? ? recorded. Imaging None ? ? recorded. Vitals 04/03/2019 09:00AM Office 15 Height Weight BMI Blood Pressure 163.83 cm 68.8 kg 25.6 kg/m2 138/68 mm[Hg] 08/21/2018 11:30AM Follow Up 30 Height Weight BMI Blood Pressure 163.83 cm 68 kg 25.3 kg/m2 120/70 mm[Hg] 01/31/2018 Height Weight Blood Pressure 163.83 cm 68.95 kg 128/70 mm[Hg] 03/08/2017 Height Weight Blood Pressure 163.83 cm 72.12 kg 100/60 mm[Hg] 01/03/2017 Height Weight Blood Pressure 163.83 cm 70.31 kg 110/60 mm[Hg]
[2021-02-05 09:27] LABS: Source Nasal/Nares
[2021-02-05 13:13] LABS: COVID-19 PCR Negative (Negative)
--- NOTE | 2021-02-05 13:51 | NUR.NOTE ---
Nursing Note: Pt contacted via phone and notified of negative covid results.
== END 2021-02-05 09:20 ==
PROVIDERS: Student in an Organized Health Care Education/Training Program; Emergency Provider Nurse Practitioner Family; PCP Nurse Practitioner
DX: Z03.818 Encounter for observation for suspected exposure to other biological agents ruled out (principal)
CPT/HCPCS: 87635

== ENCOUNTER 2021-05-15 13:24 | Outpatient (REF) | payer OTHER, SELFPAY ==
[2021-05-17 00:48] LABS: COVID-19 RT-PCR UVMMC Result Negative (Negative)
== END 2021-05-15 13:25 | disposition home or self-care (01) ==
LOC: LBN 13:24
PROVIDERS: PCP Nurse Practitioner; Visit Provider Physician Assistant Medical
DX: Z20.822 Contact with and (suspected) exposure to COVID-19 (principal); J06.9 Acute upper respiratory infection, unspecified
CPT/HCPCS: U0003

== ENCOUNTER → 2022-07-12 13:02 | Outpatient (CLI) | payer OTHER, SELFPAY ==
--- NOTE | 2022-07-12 | DI.RAD_ITS ---
Exam(s) XR CHEST 2V PA LATERAL EXAM: XR CHEST 2V PA LATERAL CLINICAL HISTORY: PRODUCTIVE COUGH-PURULENT SPUTUM---R05.8 TECHNIQUE: 2D digital imaging was performed of the chest. Two images were obtained. PA and lateral views were obtained. COMPARISON: CR CHEST 2 VIEWS PA,LAT from 11/15/2016 CR CHEST 2 VIEWS PA,LAT from 02/13/2017 CR XR CHEST 2V PA LATERAL from 12/05/2018 FINDINGS: MEDIASTINUM: Normal. HEART: Normal. PULMONARY VASCULATURE: Normal. LUNGS: There indistinct borders on the right side of the heart on the frontal view and in opacities s een overlying the heart anteriorly on the lateral view. The findings are suspicious for right middle lobe infiltrate. The lungs are otherwise clear. PLEURAL SPACE: No pleural effusion or pneumothorax. BONE:Within normal limits for the patient's age. OTHER FINDINGS:Normal. IMPRESSION: Question of a right middle lobe infiltrate. DATA REPOSITORY: RADIATION DOSE DELIVERED:
== END ==
PROVIDERS: PCP Nurse Practitioner; Visit Provider Nurse Practitioner Family
DX: R05.9 Cough, unspecified (principal)
CPT/HCPCS: 71046

== ENCOUNTER → 2022-08-08 14:10 | Outpatient (CLI) | payer OTHER, SELFPAY ==
--- NOTE | 2022-08-08 | DI.RAD_ITS ---
Exam(s) XR CHEST 2V PA LATERAL EXAM: XR CHEST 2V PA LATERAL CLINICAL HISTORY: RT MIDDLE LOBE PNEUMONIA, J18.9; COMPARE TO X-RAY OF 07/12/22 TECHNIQUE: 2D digital imaging was performed. COMPARISON: CR XR CHEST 2V PA LATERAL from 07/12/2022 FINDINGS: The heart is not enlarged. The lungs are clear and well expanded. No pleural effusion seen. Mediastin al contours appear intact. IMPRESSION: Normal chest. A previously described right middle lobe area of opacity seen on prior examination of July 12 has resolved. RADIATION DOSE DELIVERED: Total DLP
== END ==
PROVIDERS: PCP Nurse Practitioner; Visit Provider Nurse Practitioner Family
DX: J18.9 Pneumonia, unspecified organism (principal)
CPT/HCPCS: 71046

== ENCOUNTER 2023-01-23 13:27 | Outpatient (REF) | payer OTHER, SELFPAY ==
[2023-01-23 14:56] LABS: HCT 38.4 % (36.0-46.0); MCH 19.4 pg (27.0-33.0); MCHC 31.3 % (32.0-36.0); MCV 62 fL (80-95); MPV 10.8 fL (8.0-11.0); Platelet Count 352 10^3/uL (130-400); RBC 6.17 10^6/uL (3.93-5.22); RDW 17.3 % (11.7-14.6); WBC 12.02 10^3/uL (4.4-10.8)
[2023-01-23 15:12] LABS: Calculated LDL 145 mg/dL (<100); Cholesterol 227 mg/dL (<200); HDL Cholesterol 60 mg/dL (40-60); Triglyceride 111 mg/dL (<150)
[2023-01-23 15:18] LABS: Hemoglobin A1C 5.3 % (<5.7)
[2023-01-23 22:47] LABS: FSH 134.8 mIU/mL (See Note)
== END 2023-01-23 13:28 | disposition home or self-care (01) ==
LOC: NCHCN 13:27
PROVIDERS: PCP Nurse Practitioner; Visit Provider Family Medicine
DX: N95.1 Menopausal and female climacteric states (principal); Z13.1 Encounter for screening for diabetes mellitus; D72.829 Elevated white blood cell count, unspecified; Z13.220 Encounter for screening for lipoid disorders; F17.210 Nicotine dependence, cigarettes, uncomplicated
CPT/HCPCS: 80061; 85027; 83001; 83036

== ENCOUNTER 2023-02-27 22:28 | Emergency (ER) | payer OTHER, SELFPAY ==
--- NOTE | 2023-02-27 22:29 | DI.RAD_ITS ---
Exam(s) XR WRIST LT COMP NAVICULAR EXAM: XR WRIST LT COMP NAVICULAR CLINICAL HISTORY: pain to base of right thumb/radial wrist. TECHNIQUE: 2D digital imaging was performed of the left wrist. Four images were obtained. Scaphoid , PA, oblique and lateral views were obtained. COMPARISON: CR,XR XR WRIST RT COMPLETE from 12/24/2019 FINDINGS: BONES: No acute fracture is present. No bony destructive lesion is seen. There is a well corticated o sseous density at the 1st CMC joint which may reflect old injury. JOINTS: The carpal bones are normally aligned. SOFT TISSUE: Normal. IMPRESSION: No acute fracture or dislocation. DATA REPOSITORY: RADIATION DOSE DELIVERED:
[2023-02-27 22:30] VITALS: BP 131/76; PULSE 87; RESP 16; TEMP 36.7; O2SAT 98
--- NOTE | 2023-02-27 22:45 | W.ED.GENAD ---
Discharge Plan Disposition Patient Disposition: Home Discharge Details Chief Complaint: Orthopedic Clinical Impression: De Quervain's tenosynovitis Primary Care Provider: Velia Su ED Provider: Ousmane Acevedo Home Meds and New Rx's Prescriptions: No Action vitamin E mixed 400 unit capsule PO DAILY fluticasone propionate 50 mcg/actuation spray,suspension 1 spray intranasal BID Rx Instructions: administer into each nostril calcium carbonate [Calcium 600] 600 MG tablet 600 mg PO DAILY montelukast 10 MG tablet 10 mg PO DAILY loratadine 10 MG tablet 10 mg PO DAILY fluticasone propionate [Flovent HFA] 1 PUFF HFA aerosol inhaler 0 g Inhalation BID levalbuterol tartrate [Xopenex HFA] 1 PUFF HFA aerosol inhaler 2 puff Inhalation PRN PRN dexlansoprazole [Dexilant] 30 MG capsule,biphase delayed releas 30 mg PO DAILY bupropion HCl [Wellbutrin SR] 150 mg Tablet Sustained-Release 12 Hr 150 mg PO BID sertraline 25 mg Tablet 25 mg PO DAILY Discharge Instructions Additional Instructions: See informational packet regarding de Quervain tendinopathy. Please follow-up with [facility] hand specialist. Please return to the emergency department for any worsening symptoms Medical Decision Making 52-year-old female presents with right wrist discomfort worse with certain motions, does type at her job. Has had occasional accidental injuries while working at home. Discomfort located along extensor tendons of thumb. No overt signs of trauma. Neurovascular exam of limb intact. Likely tendinitis of extensor tendon, such as de Quervain tendonopathy. Low suspicion for fracture or dislocation. Will obtain screening x-ray. Likely will provide referral to orthopedic team for close follow-up. 23: 31 x-ray unremarkable. Positive Luis Daniel's test. Likely de Quervain tendinopathy. HPI General Date/Time Provider Initiated Documentation: 02/27/23 22:29. HPI Narrative: 52-year-old female presents with approximately 8 weeks of right wrist pain worse with certain positions. Patient does type for her job. Has had intermittent accidental injuries working at home with no recent memorable injury Related Data Home Medications Medication Instructions Recorded Confirmed calcium carbonate 600 mg calcium 600 mg PO DAILY 06/20/13 12/24/19 (1,500 mg) tablet (Calcium) dexlansoprazole 30 mg 30 mg PO DAILY 06/20/13 12/24/19 capsule,biphase delayed release (Dexilant) fluticasone propionate 110 0 g inhalation BID 06/20/13 12/24/19 mcg/actuation HFA aerosol inhaler (Flovent HFA) levalbuterol tartrate 45 2 puff inhalation PRN PRN 06/20/13 12/24/19 mcg/actuation aerosol inhaler (Xopenex HFA) loratadine 10 mg tablet 10 mg PO DAILY 06/20/13 12/24/19 montelukast 10 mg tablet 10 mg PO DAILY 06/20/13 12/24/19 bupropion HCl 150 mg tablet,12 hr 150 mg PO BID 10/06/18 10/06/18 sustained-release (Wellbutrin SR) sertraline 25 mg tablet 25 mg PO DAILY 10/06/18 12/24/19 fluticasone propionate 50 1 spray intranasal BID 02/08/23 mcg/actuation nasal spray,suspension vitamin E mixed 400 unit capsule unit PO DAILY 02/08/23 Allergies Allergy/AdvReac Type Severity Reaction Status Date / Time codeine Allergy Intermediate shakes-passes Unverified 02/08/23 14:24 out doxycycline Allergy Intermediate Swelling/Ed Verified 02/08/23 14:24 wali Penicillins Allergy Intermediate ? rash as Unverified 02/08/23 14:24 child amitriptyline HCl Allergy Mild Skin Rash Unverified 02/08/23 14:24 [From Elavil] hydrocodone [Hydrocodone] Allergy Mild vomiting Unverified 02/08/23 14:24 diarrhea General Stated Complaint: Orthopedic SATYA: 4 Review of Systems Narrative: Review of Systems Constitutional: negative Eyes: negative ENT: negative Cardiovascular: negative Respiratory: negative Gastrointestinal: negative : negative Musculoskeletal: Wrist pain Skin: negative Neurologic: negative Psych: negative PFSH All Active Problems (Updated 02/27/23 @ 23:41 by Ousmane Acevedo MD) De Quervain's tenosynovitis (Acute) Chronic pharyngitis (Acute) Contusion of right wrist (Acute) Neck pain (Acute) Tobacco abuse (Acute) Anxiety (Chronic) Medical History (Updated 02/27/23 @ 23:41 by Ousmane Acevedo MD) Celiac disease Thalassemia Surgical History H/O section H/O laparoscopy H/O thumb surgery History of appendectomy History of hysterectomy Social History Smoking/Tobacco Use Status: Former Tobacco Use Quit Date: 07/23/18 Smoking risk assessment performed?: Yes Alcohol Intake: never Drug use: Never Substance use type: does not use Do you feel safe at home: Yes Do you feel safe in your relationship?: Yes Exam Narrative Exam Narrative: Physical Examination General: alert, awake, cooperative, resting comfortably, no acute distress Skin: no lesions, rashes or trauma appreciated Neuro: AAOx3, normal speech, moving all extremities Extremities: Flexion extension radial and ulnar deviation of wrist intact, median radial ulnar distribution sensory exam intact, warm well perfused extremity radial pulse intact, discomfort over extensor pollicus tendons; no deformity noted Psych: Appropriate mood and affect Course Vital Signs Vital signs: Vital Signs Temperature 36.7 C 02/27/23 22:30 Pulse 87 02/27/23 22:30 Respiratory Rate 16 02/27/23 22:30 Blood Pressure 131/76 02/27/23 22:30 Pulse Oximetry 98 02/27/23 22:30 Temperature 36.7 C 02/27/23 22:30 Temperature Source Tympanic 02/27/23 22:30 Pulse 87 02/27/23 22:30 Respiratory Rate 16 02/27/23 22:30 Respiratory Effort Normal 02/27/23 22:34 Blood Pressure 131/76 02/27/23 22:30 Blood Pressure Position Sitting 02/27/23 22:30 Pulse Oximetry 98 02/27/23 22:30 Oxygen Delivery Method Room Air 02/27/23 22:30 Oxygen Flow Rate 0 02/27/23 22:30 Pain Level 8 02/27/23 22:30
--- NOTE | 2023-02-27 23:24 | DI.VRAD_ITS ---
Addendum created by Maricarmen Bobby MD on 02/27/2023 11:24:01 PM EDT: The technique and examination should reflect these are images of the right wrist. Initial report created on 02/27/2023 11:23:42 PM EDT: PROCEDURE INFORMATION: Exam: XR Left Wrist Exam date and time: 02/27/2023 22:50 Age: 52 years old Clinical indication: Pain; Wrist; Right; Additional info: Pain to base of right thumb/radial wrist TECHNIQUE: Imaging protocol: Radiologic exam of the left wrist. Views: 3 or more views. COMPARISON: No relevant prior studies available. FINDINGS: Bones/joints: No acute fracture or subluxation. Mild 1st carpometacarpal degenerative changes. The scaphoid is intact. Soft tissues: Benign calcifications in the soft tissues. IMPRESSION: No acute bony pathology. Dictated and Authenticated by: Maricarmen Bobby MD. Ordering:ROSALINO Romeo MD
== END 2023-02-27 23:44 | disposition home or self-care (01) ==
PROVIDERS: Emergency Provider Emergency Medicine; PCP Family Medicine
DX: M65.4 Radial styloid tenosynovitis [de Quervain] (principal)
CPT/HCPCS: 99283; 73110

== ENCOUNTER 2023-07-04 16:21 | Outpatient (REF) | payer OTHER, SELFPAY | END 2023-07-04 16:22 | disposition home or self-care (01) | LOC: LBN 16:21 | PROVIDERS: PCP Family Medicine; Visit Provider Obstetrics & Gynecology | DX: R30.0 Dysuria (principal) | CPT/HCPCS: 87086 ==

== ENCOUNTER 2025-03-05 09:54 | Outpatient (REF) | payer OTHER, SELFPAY ==
[2025-03-05 17:19] LABS: ALT 28 U/L (14-59); AST 24 U/L (15-37); Albumin 3.9 g/dL (3.4-5.0); Alkaline Phosphatase 97 U/L (46-116); BUN 17 mg/dL (7-18); Bilirubin, Total 0.5 mg/dL (0.2-1.0); Calcium 9.2 mg/dL (8.5-10.1); Chloride 106 mmol/L (98-107); Estimated GFR 66.95 (mL/min/1.73m2); Glucose 96 mg/dL (74-106); Potassium 4.2 mmol/L (3.5-5.1); Sodium 142 mmol/L (136-145); Total Protein 7.4 g/dL (6.4-8.2)
== END 2025-03-05 09:55 | disposition home or self-care (01) ==
LOC: NCHCN 09:54
PROVIDERS: PCP Student in an Organized Health Care Education/Training Program; Visit Provider Student in an Organized Health Care Education/Training Program
DX: E78.49 Other hyperlipidemia (principal)
CPT/HCPCS: 80053

== ENCOUNTER 2025-03-19 17:19 | Outpatient (REF) | payer OTHER, SELFPAY | END 2025-03-19 17:20 | disposition home or self-care (01) | LOC: NCHCN 17:19 | PROVIDERS: PCP Student in an Organized Health Care Education/Training Program; Visit Provider Student in an Organized Health Care Education/Training Program | DX: N39.0 Urinary tract infection, site not specified (principal); R82.89 Other abnormal findings on cytological and histological examination of urine | CPT/HCPCS: 87086 ==